=== PATIENT | male | born 1975 | race Caucasian/White ===

== ENCOUNTER 2022-08-23 17:13 | Emergency (ER) | payer BC ==
[~2022-08-23] VITALS: Ht 200.7 cm; Wt 127.0 kg
[~2022-08-23 17:13] MED LIST: ALLOPURINOL100 MG PO
[2022-08-23] MEDS ORDERED: NEURONTIN100 MG PO (20:49)
[2022-08-23] MEDS ORDERED: PERCOCET 5-3251 EACH PO (20:49)
--- NOTE | 2022-08-25 12:27 | EKG ---
[facility] [address] [place] [address] Signed Normal sinus rhythm Normal ECG No previous ECGs available Confirmed by Jael Plasencia MD () on 08/25/2022 12:26:46 PM Electronically Signed By: JAEL PLASENCIA MD 08/25/22 1227 PATIENT NAME: NOBLE BENJAMIN Electrocardiogram DATE OF : 71 PHYSICIAN: JAEL PLASENCIA MD REPORT #: [id number] REPORT IS CONFIDENTIAL AND NOT TO BE RELEASED WITHOUT AUTHORIZATION
== END 2022-08-23 21:16 | disposition home or self-care (01) ==
LOC: ED 17:13
DX: M54.12 Radiculopathy, cervical region (principal); I10 Essential (primary) hypertension; Z79.899 Other long term (current) drug therapy
CPT/HCPCS: 36415; 70498; 71045; 71275; 80053; 83735; 84484; 85025; 93005; 93010; 96375; 99284-25; J1170; J1885; J2270; Q9967